=== PATIENT | female | born 1985 ===

== ENCOUNTER 2018-05-14 15:19 | Emergency (ER) | payer SELFPAY ==
--- NOTE | 2018-05-14 16:07 | ED PDOC ---
HPI: Influenza Time Seen by Provider: 05/14/18 15:53 Chief Complaint: Fever Chief Complaint (Provider): Flu-like symptoms History Per: Patient Exam Limitations: no limitations Onset/Duration Of Symptoms: Days (2x) Symptoms include: sore throat, cough Sick Contacts (Context): Family Member(s) (patient's child had the flu recently) Additional complaint(s):: 33 year old female with no pertinent past medical history presents to the ED for an evaluation of flu-like symptoms that started yesterday. Patient reports that yesterday she began having a fever, cough, and sore throat. Patient reports taking nyquil and zithromax with no relief. Patient states that her child recently had the flu. Patient denies having any other complaints. PMD: None provided. Past Medical History Reviewed: Historical Data, Nursing Documentation, Vital Signs Vital Signs: Last Vital Signs Temp 100.6 F H 05/14/18 15:32 Pulse 106 H 05/14/18 15:32 Resp 20 05/14/18 15:32 BP 105/60 05/14/18 15:32 Pulse Ox 96 05/14/18 15:32 TIM Report Viewed: Yes - Medical History PMH: No Chronic Diseases - Family History Family History: States: No Known Family Hx - Living Arrangements Living Arrangements: With Family - Social History Current smoker - smoking cessation education provided: No Alcohol: None Drugs: Denies - Home Medications Home Medications: Ambulatory Orders Medication Instructions Recorded Acetaminophen [Acetaminophen Extra 2 tab PO Q6 PRN #24 tablet 05/14/18 Strength] Ibuprofen [Motrin] 600 mg PO Q8 PRN #21 tab 05/14/18 Oseltamivir Cap [Tamiflu] 75 mg PO BID #9 cap 05/14/18 - Allergies Allergies/Adverse Reactions: Allergies Allergy/AdvReac Type Severity Reaction Status Date / Time Penicillins Allergy RASH Verified 05/14/18 15:32 Review of Systems ROS Statement: Except As Marked, All Systems Reviewed And Found Negative Constitutional: Positive for: Fever ENT: Positive for: Throat Pain Respiratory: Positive for: Cough Physical Exam - Reviewed Nursing Documentation Reviewed: Yes Vital Signs Reviewed: Yes - Physical Exam Appears: Positive for: Well, Non-toxic, No Acute Distress Head Exam: Positive for: ATRAUMATIC, NORMOCEPHALIC Skin: Positive for: Normal Color, Warm, Dry ENT: Positive for: Pharynx Is (mildly irritated. ). Negative for: Pharyngeal Erythema, Tonsillar Exudate Cardiovascular/Chest: Positive for: Regular Rate, Rhythm Respiratory: Positive for: Normal Breath Sounds Neurologic/Psych: Positive for: Alert, Oriented (3x) Medical Decision Making Medical Decision Makin:53 Initial impression: 33 year old female with the flu Initial plan: * influenza AB * rapid strep group a antigen * motrin tab 800 mg PO * tamiflu cap 75 mg PO * reevaluation Scribe Attestation: Documented byRoseline Gordillo, acting as a scribe for Josi Mckeon PA-C. Provider Scribe Attestation: All medical record entries made by the Scribe were at my direction and personally dictated by me. I have reviewed the chart and agree that the record accurately reflects my personal performance of the history, physical exam, medical decision making, and the department course for this patient. I have also personally directed, reviewed, and agree with the discharge instructions and disposition. - ECG O2 Sat by Pulse Oximetry: 96 (RA) Pulse Ox Interpretation: Normal Disposition - Clinical Impression Clinical Impression: Influenza-like illness - Patient ED Disposition Is Patient to be Admitted: No - Disposition Referrals: [facility] [Outside] Disposition: Routine/Home Disposition Time: 17:46 Condition: FAIR Prescriptions: Acetaminophen [Acetaminophen Extra Strength] 2 tab PO Q6 PRN #24 tablet PRN Reason: Pain, Moderate (4-7) Ibuprofen [Motrin] 600 mg PO Q8 PRN #21 tab PRN Reason: Pain, Moderate (4-7) Oseltamivir Cap [Tamiflu] 75 mg PO BID #9 cap Instructions: Flu, Adult (DC) Forms: [facility] ED School/Work Excuse
[2018-05-14 17:31] VITALS: BP 105/58; PULSE 92; RESP 16; TEMP 99.3
[2018-05-14 17:47] VITALS: O2SAT 96
== END 2018-05-14 17:50 | disposition home or self-care (01) ==
LOC: H.ER 15:19
DX: J11.1 Influenza due to unidentified influenza virus with other respiratory manifestations (principal)